=== PATIENT | female | born 1945 | race Caucasian/White ===

== ENCOUNTER 2019-07-04 13:44 | Outpatient (RCR) | payer MEDICARE, MEDICAID, SELFPAY ==
[2019-07-04 14:48] LABS: Calcium 9.7 mg/dL (8.5-10.5)
[2019-07-08 11:41] VITALS: BP 139/87; PULSE 75; RESP 20; TEMP 36.3; O2SAT 98; BMI 21.9
== END 2019-07-23 23:59 | disposition home or self-care (01) ==
LOC: GILAB 13:44
PROVIDERS: Family Provider Nurse Practitioner; PCP Nurse Practitioner; Visit Provider Student in an Organized Health Care Education/Training Program
DX: M81.0 Age-related osteoporosis without current pathological fracture (principal)
CPT/HCPCS: 82310; 82565; 96365; J3489

== ENCOUNTER 2022-05-23 12:26 | Emergency (ER) | payer MEDICARE, MEDICAID, SELFPAY ==
[2022-05-23 12:30] VITALS: BP 152/87; PULSE 72; RESP 18; TEMP 37.2; O2SAT 95; BMI 23.0
--- NOTE | 2022-05-23 13:56 | XR_ITS ---
WS: [id number] Chest 2 views, 05/23/2022 Clinical Data: dizziness Comparison: None. Findings: No nodules, masses or effusions are seen. The heart is normal. The pulmonary vascularity is not increased. No pneumonia or pneumothorax is seen. The aortic arch and descending thoracic aorta a re tortuous. The diaphragms are flattened. The patient has had cervical spine surgery. There is a dex troscoliosis of the upper lumbar spine. XR/XR chest 2V* 16803 Impression: Atherosclerosis and hyperinflation.
--- NOTE | 2022-05-23 13:56 | CT_ITS ---
WS: [id number] CT HEAD TECHNIQUE: Noncontrast CT of the head obtained from the skullbase to the vertex. CLINICAL INFORMATION: dizziness COMPARISON: None. DLP: 1005.[address] scans at [facility] use at least one of these dose optimization techniques: automated e xposure control; mA and/or kV adjustment per patient size (includes targeted exams where dose is matc hed to clinical indication); or iterative reconstruction. FINDINGS: No evidence of intracranial hemorrhage or mass effect. Ventricular system and basal cisterns are wilalms nt. Minimal small vessel changes with mild parenchymal volume loss. No extra-axial fluid collections. No evidence of mass or mass effect. Mild mucosal thickening ethmoid air cells. Mastoid air cells well aerated. CT/CT head wo con* 98227 IMPRESSION: 1. No evidence of intracranial hemorrhage or mass effect. 2. Minimal small vessel changes. Mild parenchymal volume loss. 3. No acute intracranial findings.
--- NOTE | 2022-05-23 15:03 | W.ED.DIZZY ---
HPI - Dizziness General: Chief Complaint: Dizziness Stated Complaint: dizzy Time Seen by Provider: 05/23/22 14:47 History of Present Illness: HPI Narrative: Patient comes in with dizziness that she states started yesterday. Describes it as room spinning sensation, and feels like she is off balance. States that it comes and goes. Denies any sick symptoms including no fever, cough, congestion, vomiting, or diarrhea. Associated symptoms: Denies chest pain, headache(s), nausea, palpitations or vomiting Associated neuro symptoms: Deny numbness in extremities Review of Systems Const: Denies: fever(s) or body aches Eyes: Denies: change in vision or blurry vision ENMT: Denies: throat pain or odynophagia Card: Denies: chest pain or palpitations Resp: Denies: dyspnea or productive cough GI: Denies: abdominal pain, nausea or vomiting : Denies: flank pain or dysuria Musc: Denies: neck pain or back pain Skin/Breast: Denies: rash or pruritus Neuro: Reports: dizziness; Denies: headache(s) or numbness in extremities Psych: Denies: anxiety or change in appetite Endo: Denies: polyuria or excessive sweating Physical Exam Const: COMMON NORMALS: no acute distress, patient oriented x3, healthy appearing and alert HENMT: COMMON NORMALS: normocephalic and atraumatic HEAD & SCALP: normocephalic and atraumatic Eye: COMMON NORMALS: Equal, round and reactive pupils present and EOMs intact bilaterally PUPIL: Yes Equal, round and reactive pupils present Neck/C-Spine: COMMON NORMALS: full ROM and supple Resp: COMMON NORMALS: normal respiratory effort, No retractions and No use of accessory muscles Cardio: COMMON NORMALS: regular rate and regular rhythm RATE: regular rate RHYTHM: regular rhythm GI: COMMON NORMALS: Normal to inspection, nondistended, normoactive bowel sounds present, Soft to palpation and non-tender PALPATION: Yes Soft to palpation Back/Pelvis: COMMON NORMALS: thoracic and lumbar spine normal to inspection and no thoracic nor lumbar tenderness Extremity: COMMON NORMALS: normal to inspection and full ROM Neuro: COMMON NORMALS: patient oriented x3 SENSORIUM/ORIENTATION: Yes alert Psych: COMMON NORMALS: mental status grossly normal and cooperative Skin: COMMON NORMALS: no rashes or lesions noted and no wounds GENERAL SKIN EXAM: no rashes or lesions noted Course Vital Signs: Vital signs: Vital Signs Temperature 98.9 F 05/23/22 12:30 Pulse Rate 72 05/23/22 15:43 Respiratory Rate 18 05/23/22 15:43 Blood Pressure 132/82 05/23/22 15:43 Pulse Oximetry 96 05/23/22 15:43 Oxygen Delivery Me thod 05/23/22 15:43 MDM - Dizziness Medical Decision Making Patient comes in with dizziness that she states started yesterday. Describes it as room spinning sensation, and feels like she is off balance. States that it comes and goes. Denies any sick symptoms including no fever, cough, congestion, vomiting, or diarrhea. On physical exam her gait is normal for her, grossly normal neuro exam with no lateralizing symptoms. She states when she turns her head the dizziness gets worse. Will check labs, CT, treat dizziness with p.o. meclizine, and reassess. On reassessment I talked to the patient about the test results. She states that her dizziness is gone after the meclizine. She is able to walk straight without any abnormal gait. Will discharge home at this time with precautions to return for worsening or changing symptoms. Lab Data 05/23/22 13:29 05/23/22 13:29 Radiology Impressions Chest X-Ray 05/23/22 13:56 Impression: Atherosclerosis and hyperinflation. Head CT 05/23/22 13:56 IMPRESSION: 1. No evidence of intracranial hemorrhage or mass effect. 2. Minimal small vessel changes. Mild parenchymal volume loss. 3. No acute intracranial findings. Laboratory Results WBC 5.0 10^3/uL (4.0-10.0) 05/23/22 13:29 RBC 4.52 10^6/uL (4.1-5.3) 05/23/22 13:29 Hgb 14.9 g/dL (11.5-15.3) 05/23/22 13:29 Hct 45.0 % (37.0-47.0) 05/23/22 13:29 MCV 99.6 fl (81-99) H 05/23/22 13:29 MCH 33.0 pg (28.0-34.0) 05/23/22 13:29 MCHC 33.1 g/dL (30.0-36.0) 05/23/22 13:29 RDW 13.2 % (12.1-15.1) 05/23/22 13:29 Plt Count 187 10^3/cmm (130-400) 05/23/22 13:29 MPV 9.9 fL (7.4-10.4) 05/23/22 13:29 Neut % (Auto) 64.6 % 05/23/22 13:29 Lymph % (Auto) 26.2 % 05/23/22 13:29 [place] % (Auto) 7.4 % 05/23/22 13:29 Eos % (Auto) 0.8 % 05/23/22 13:29 Baso % (Auto) 0.8 % 05/23/22 13:29 Neut # (Auto) 3.25 10^3/uL (1.8-7.7) 05/23/22 13:29 Lymph # (Auto) 1.3 10^3/uL (0.8-4.8) 05/23/22 13:29 [place] # (Auto) 0.4 10^3/uL (0.2-0.9) 05/23/22 13:29 Eos # (Auto) 0.0 10^3/uL (0.0-0.8) 05/23/22 13:29 Baso # (Auto) 0.0 10^3/uL (0.0-0.1) 05/23/22 13:29 Nucleated RBC % (auto) 0 % 05/23/22 13:29 Nucleated RBCs # 0.0 /100WBC 05/23/22 13:29 Sodium 133 mmol/L (136-145) L 05/23/22 13:29 Potassium 4.6 mmol/L (3.5-5.1) 05/23/22 13:29 Chloride 101 mmol/L (98-107) 05/23/22 13:29 Carbon Dioxide 23 mmol/L (22-29) 05/23/22 13:29 Anion Gap 13.6 (5-19) 05/23/22 13:29 BUN 13 mg/dL (8-23) 05/23/22 13:29 Creatinine 0.6 mg/dL (0.5-0.9) 05/23/22 13:29 GFR Calculation Not Reportable 05/23/22 13:29 Glucose 82 mg/dL (65-115) 05/23/22 13:29 Calculated Osmolality 275 mOsm/kg (285-295) L 05/23/22 13:29 Calcium 9.2 mg/dL (8.5-10.5) 05/23/22 13:29 Total Bilirubin 0.2 mg/dL (0.15-1.2) 05/23/22 13:29 AST 16 U/L (0-32) 05/23/22 13:29 ALT 8 U/L (0-33) 05/23/22 13:29 Alkaline Phosphatase 59 U/L (35-105) 05/23/22 13:29 Troponin T Baseline 7 ng/L (0-10) 05/23/22 13:29 Total Protein 6.8 g/dL (6.6-8.7) 05/23/22 13:29 Albumin 4.3 g/dL (3.5-5.2) 05/23/22 13:29 Globulin 2.5 g/dL (1.3-4.6) 05/23/22 13:29 Discharge Plan Discharge Patient Disposition: Home Clinical Impression: Vertigo Condition: Stable Prescriptions: New meclizine 25 mg tablet 25 mg PO TID PRN (Reason: dizziness) Qty: 20 0RF No Action cyanocobalamin (vitamin B-12) 1,000 mcg/mL solution 1,000 mcg IM .MONTHLY aspirin [Adult Aspirin Regimen] 81 mg tablet,delayed release (DR/EC) 81 mg PO DAILY pantoprazole [Protonix] 20 mg tablet,delayed release (DR/EC) 20 mg PO DAILY Rx Instructions: TAKE EVERY OTHER DAY albuterol sulfate [ProAir HFA] 90 mcg/actuation HFA aerosol inhaler 2 puff inhalation 6XD PRN duloxetine 20 mg capsule,delayed release(DR/EC) 20 mg PO DAILY Soma 350 mg Tablet hydrocodone-acetaminophen 10-325 mg Tablet 1 tab PO Q6H PRN (Reason: unknown) Zestril 5 mg Tablet 5 mg PO DAILY Discharge Orders: Discharge ED (Routine); Ordered 05/23/22 Ordered By: Jose Aly Referrals: Khadra York PA-C [Primary Care Provider] - Patient Instructions: Vertigo (ED) Coding Level of Care Code ED Research Microbiologist for Chg Fwd Exam Comprehensive
--- NOTE | 2022-05-23 15:11 | ECG_ITS ---
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 Measurements Intervals [place] Rate: 58 P: 59 CT: 144 QRS: 74 QRSD: 77 T: 71 QT: 414 QTc: 408 Interpretive Statements SINUS BRADYCARDIA SEPTAL MYOCARDIAL INFARCTION , OF INDETERMINATE AGE [40+ ms Q WAVE IN V1/V2] No previous ECG available for comparison Electronically Signed On 05-23-2022 19:01:35 SOILS ANALYST by Nhung Mosley M.D. [id number]
[2022-05-23 15:37] LABS: Basophils % 0.8 %; Eosinophils % 0.8 %; Hemoglobin 14.9 g/dL (11.5-15.3); Lymphocytes # 1.3 10^3/uL (0.8-4.8); Lymphocytes % 26.2 %; Mean Corpuscular HGB Conc 33.1 g/dL (30.0-36.0); Mean Corpuscular Volume 99.6 fl (81-99); Mean Platelet Volume 9.9 fL (7.4-10.4); Monocytes # 0.4 10^3/uL (0.2-0.9); Monocytes % 7.4 %; Neutrophils # 3.25 10^3/uL (1.8-7.7); Neutrophils % 64.6 %; Nucleated Red Blood Cells % 0 %; Platelet Count 187 10^3/cmm (130-400); Red Blood Count 4.52 10^6/uL (4.1-5.3); Red Cell Distribution Width 13.2 % (12.1-15.1)
[2022-05-23] MEDS: meclizine 25 mg tablet PO (15:37)
[2022-05-23 15:43] VITALS: BP 132/82; PULSE 72; RESP 18; O2SAT 96
[2022-05-23 15:56] LABS: Alanine Aminotransferase 8 U/L (0-33); Albumin Level 4.3 g/dL (3.5-5.2); Alkaline Phosphatase 59 U/L (35-105); Aspartate Amino Transferase 16 U/L (0-32); Blood Urea Nitrogen 13 mg/dL (8-23); Calcium 9.2 mg/dL (8.5-10.5); Carbon Dioxide 23 mmol/L (22-29); Chloride 101 mmol/L (98-107); Globulin 2.5 g/dL (1.3-4.6); Glucose 82 mg/dL (65-115); Osmolality Calculated 275 mOsm/kg (285-295); Sodium 133 mmol/L (136-145); Total Bilirubin 0.2 mg/dL (0.15-1.2); Total Protein 6.8 g/dL (6.6-8.7)
[2022-05-23 15:58] LABS: Anion Gap 13.6 (5-19); Potassium 4.6 mmol/L (3.5-5.1); Troponin(5th) Baseline 7 ng/L (0-10)
--- NOTE | 2022-05-23 16:22 | ECG_ITS ---
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 Measurements Intervals [place] Rate: 56 P: 57 NV: 142 QRS: 68 QRSD: 74 T: 70 QT: 427 QTc: 414 Interpretive Statements SINUS BRADYCARDIA Compared to ECG 05/23/2022 15:11:52 Myocardial infarct finding no longer present Electronically Signed On 05-23-2022 20:29:39 WEBSPHERE COMMERCE CONSULTANT by Nhung Mosley M.D. [id number]
[2022-05-23 17:23] LABS: Troponin 5 2HR 7.78 ng/L (0-10)
[2022-05-23 17:41] LABS: Troponin 5 2HR Delta 0.78 ABS# (0-10)
== END 2022-05-23 16:45 | disposition home or self-care (01) ==
PROVIDERS: Nurse Practitioner; Emergency Provider Emergency Medicine; PCP Physician Assistant
DX: R42 Dizziness and giddiness (principal); Z79.82 Long term (current) use of aspirin
CPT/HCPCS: 36415; 70450; 71046; 80053; 84484; 85025; 93005; 99285; J8597